=== PATIENT | male | born 1970 | race Two or more races ===

== ENCOUNTER 2019-10-25 19:04 | Emergency (ER) | payer SELFPAY ==
[~2019-10-25] VITALS: Ht 167.6 cm; Wt 86.2 kg
[2019-10-25 19:59] LABS: Basophils # (auto) 0 uL; Basophils % (auto) 0.5 % (0.0-2.0); Eosinophils # (auto) 0.1 uL; Eosinophils % (auto) 0.6 % (0.0-7.0); Hematocrit 44.4 % (41.0-53.0); Hemoglobin 15.1 g/dL (13.5-17.5); Lymphocytes # (auto) 1.5 uL; Lymphocytes % (auto) 16.7 % (10.0-50.0); Mean Corpuscular Hemoglobin 30.4 pg (28.0-32.0); Mean Corpuscular Volume 89.4 fL (80.0-100.0); Monocytes # (auto) 0.5 uL; Neutrophils # (auto) 6.9 uL; Neutrophils % (auto) 76.2 % (37.0-80.0); Platelet Count (auto) 256 10^3/uL (140-450); Red Blood Cells 4.97 10^6/uL (4.5-5.90); Red Cell Distribution Width 13.3 % (11.8-14.3)
[2019-10-25 20:18] LABS: Albumin 3.8 g/dL (3.4-5.0); Anion Gap 6 (5-15); Blood Alcohol < 3.0 mg/dL (0-5); Blood Urea Nitrogen 23 mg/dL (7-18); Calcium 9.1 mg/dL (8.5-10.1); Carbon Dioxide 27 mmol/L (21-32); Chloride 105 mmol/L (98-107); Glucose 151 mg/dL (74-106); Lipase 105 U/L (73-393); Magnesium 2.2 mg/dL (1.6-2.6); Potassium 3.7 mmol/L (3.5-5.1); Sodium 138 mmol/L (136-145)
[2019-10-25 20:24] LABS: Alanine Aminotransferase 36 U/L (16-61); Alkaline Phosphatase 65 U/L (45-117); Aspartate Aminotransferase 21 U/L (15-37); BUN/Creatinine Ratio 28.8; Bilirubin, Total 0.3 mg/dL (0.2-1.0); GFR African American 132 mL/min; GFR Non-African American 109 mL/min; Total Protein 7.8 g/dL (6.4-8.2)
[2019-10-26] MEDS ORDERED: MECLIZINE HCL 25 MG TAB PO ONE (01:15)
[2019-10-26 01:23] VITALS: BP 132/66
== END 2019-10-26 01:48 | disposition home or self-care (01) ==
LOC: ER 19:04
DX: H92.02 Otalgia, left ear (principal); W06.XXXA Fall from bed, initial encounter; Y93.89 Activity, other specified; Y99.8 Other external cause status; Y92.89 Other specified places as the place of occurrence of the external cause
CPT/HCPCS: 36415; 70450; 80053; 80320; 83690; 83735; 84484; 85025; 93005; 99284; J8597